=== PATIENT | female | born 1985 | race Caucasian/White ===

== ENCOUNTER 2020-10-04 17:26 | Emergency (ER) | payer BC, SELFPAY ==
[2020-10-04 17:31] VITALS: BP 113/82; PULSE 97; RESP 20; TEMP 37.2; O2SAT 97; BMI 27.2
[2020-10-04] MEDS: DiphenhydrAMINE 50 MG/ML Syringe 25 MG IV (18:43)
[2020-10-04] MEDS: Famotidine 200 MG/20 ML MDV 20 MG in 0.9% Normal Saline (Pres. free 8 ML 300 MG IV (18:45)
--- NOTE | 2020-10-04 18:55 | ED.DCSUM_ITS ---
- ER Visit Summary Date of Service: 10/04/20 Chief Complaint: Allergic reaction History of Present Illness: The patient is a 35 F presenting due to possible allergic reaction versus side effect from chemotherapy. Patient had second dose of oxalaplatin today for rectal cancer. While walking to the car she started to feel like her throat was swelling. Her symptoms have now resolved. She did not have hives. She denied respiratory distress. Dr. Leyva called and advised that patient may get cold-induced paresthesias with this chemotherapy. Advised observation in the ED. Physical Examination: Vitals are stable. Patient is afebrile. Alert no acute distress. HEENT exam is unremarkable. Pharynx is normal, no edema. Tongue is normal no swelling. Neck is supple. Lungs are clear and equal bilaterally. No wheezing Heart is regular rate and rhythm. Abdomen is soft nontender nondistended. Extremities are unremarkable. Skin is warm and dry. No rash No focal neurologic deficit. Remainder of exam is unremarkable. Emergency Department Course and Treatment: Patient was given Solu-Cortef prior to arrival. She was given Benadryl, Pepcid IV. She will be observed in the ED for several hours. On multiple reevaluations patient's symptoms have resolved. She has no further tongue swelling or difficulty breathing or swallowing. On exam she has no tongue swelling, no pharyngeal edema. She is comfortable with discharge home. She will follow-up with her oncologist. She is advised return to ED for worsening complaints. Disposition: Discharge home Impression: Chemotherapy reaction This note was generated with [employer] dictation software. It may contain incorrect words, spelling, and punctuation that were not noted in review of the chart prior to signing ED Disposition - Plan for ED Patient: Instructions: ED Drug Reaction, Other Referrals: NUVIA MCDONNELL [Other] Smooth Isabel MD [STAFF PHYSICIAN] -
[2020-10-04 19:14] VITALS: PULSE 82; RESP 18; O2SAT 97
[2020-10-04 20:10] VITALS: BP 105/75; PULSE 86; RESP 16; O2SAT 97
--- NOTE | 2020-10-04 20:33 | ED.DEP ---
ED Disposition - Plan for ED Patient: Instructions: ED Drug Reaction, Other Referrals: NUVIA MCDONNELL [Other] Smooth Isabel MD [STAFF PHYSICIAN] -
[2020-10-04 21:39] VITALS: BP 102/64; PULSE 84; RESP 12; O2SAT 97
== END 2020-10-04 21:39 | disposition home or self-care (01) ==
LOC: ED 18:47
PROVIDERS: Emergency Provider Emergency Medicine
DX: R22.9 Localized swelling, mass and lump, unspecified (principal); T45.1X5A Adverse effect of antineoplastic and immunosuppressive drugs, initial encounter; C20 Malignant neoplasm of rectum
CPT/HCPCS: 96365; 96375; 99285; A4216; J3490